=== PATIENT | female | born 1950 | race Caucasian/White ===

== ENCOUNTER → 2017-10-09 | Outpatient (CLI) | payer BC, OTHER ==
[~2017-10-09] VITALS: Ht 156.2 cm; Wt 81.7 kg
[~2017-10-09] MED LIST: ACETAMINOPHN-T1 EACH PO; AMOXICILLI250 MG/5 M GT; ASPIR 8181 M1 PO; BACTRIM,SEPT1 TABLET PO; BENADRYL50 MG PO; Bentyl PO; CALCIUM 500 MG1 EACH PO; CARAFATE100 MG/ML GT; CELEBREX200 MG PO; CELEXA20 MG GT; CELEXA20 MG PO; CITALOPRAM HBR10 MG GT; CITALOPRAM HBR20 MG PO; COLACE10 MG/ML GT; DAILY MULTIPLE1 EACH PO; Flagyl PO; GLUCOPHAGE1000 M1 PO; HYDROCODON-ACE1 EAC7 PO; LIPITOR20 MG PO; LISINOPRIL10 MG PO; LO-DOSE ASPIRIN81 M1 PO; Levaquin PO; MAALOX ADVANCE355 ML PO; METFORMIN HCL500 M1 PO; MILK OF MAGNESI10 ML GT; MULTIVITAMIN1 EAC2 PO; OXYCODONE-ACET1 EACH PO; PEPCID20 MG PO; PERCOCET 5/31 TABLET PO; PHENADOZ25 MG PR; PRILOSEC40 MG PO; PROMETHAZINE HC25 M1 PO; PROTONIX40 M1 GT; PROTONIX40 MG GT; PROTONIX40 MG PO; Percocet 5/325,Endoc PO; REQUIP0.5 MG GT; REQUIP5 MG PO; ROPINIROLE HCL0.5 MG PO; SIMVASTATIN20 MG PO; TRAMADOL HCL50 MG GT; TRAMADOL HCL50 MG PO; Tylenol Regular Stre PO; ULTRACET1 TABLET PO; ULTRAM50 MG PO; VICODIN 5-3001 EACH PO; VITAMIN B-121000 MC3 PO; VITAMIN B12-FO1 EACH PO; ZOCOR20 MG PO; ZOFRAN ODT4 MG PO; ZOFRAN4 MG PO
== END | disposition home or self-care (01) ==
LOC: AMB 13:54
PROVIDERS: Surgery
PROC: 0DJ08ZZ Inspection of Upper Intestinal Tract, Via Natural or Artificial Opening Endoscopic (ICD-10-PCS; principal; 2017-10-09)
DX: K95.89 Other complications of other bariatric procedure (principal)
CPT/HCPCS: 82948; 93005